=== PATIENT | female | born 1995 | race African-American/Black ===

== ENCOUNTER 2016-09-12 12:47 | Emergency (ER) | payer OTHER ==
[~2016-09-12] VITALS: Ht 170.2 cm; Wt 98.0 kg
[~2016-09-12 12:47] MED LIST: ALBUTEROL2.5 MG/3 M INH; CLARITIN10 M2 ORAL; IBUPROFEN600 MG ORAL; TRAMADOL HCL50 MG ORAL
[2016-09-12 12:58] VITALS: BP 127/80
[2016-09-12] MEDS ORDERED: Albuterol ud Inhalation HHN ONE (13:15)
[2016-09-12] MEDS ORDERED: PredniSONE 20mg tab ORAL ONE (13:15)
[2016-09-12] MEDS ORDERED: ACETAMINOPHEN-1 EAC1 ORAL (14:16)
[2016-09-12] MEDS ORDERED: PREDNISONE20 MG ORAL (14:16)
[2016-09-12] MEDS ORDERED: VENTOLIN HFA18 GM INH (14:16)
--- NOTE | 2016-09-12 14:28 | Emergency Room Report ---
History of Present Illness General Chief Complaint: Asthma Source: Patient Present Illness HPI 21YOF known asthmatic presents with productive cough, URI symptoms, for 3 days. Using home nebulizer with improvement. Doesnt have pump, no asthma attack " in years." Denies chest pain, SOB, fever,chills, sick contacts. Allergies: Coded Allergies: PENICILLINS (Unverified Allergy, Unknown, 09/12/16) Uncoded Allergies: PENICILLIN (Allergy, Unknown, 05/22/16) Patient History Past Medical History: asthma Past Surgical History: none Social History: Denies: alcohol use, drug use, smoking Now: No Reviewed Nursing Documentation: PMH: Agreed, PSxH: Agreed Nursing Documentation-PMH Hx Cardiac Problems: No Hx Hypertension: No Hx Pacemaker: No Hx Asthma: Yes Hx Diabetes: No Hx Cancer: No Hx Gastrointestinal Problems: No Hx Dialysis: No History Of Psychiatric Problem: No Hx Neurological Problems: No Hx Cerebrovascular Accident: No Hx Seizures: No Review of Systems All Other Systems: negative except mentioned in HPI Physical Exam Vital Signs Date Time Temp Pulse Resp B/P Pulse Ox O2 Delivery O2 Flow Rate FiO2 09/12/16 12:58 98.1 82 18 127/80 97 Room Air Sp02 EP Interpretation: reviewed, normal General Appearance: normal inspection, well appearing, no apparent distress, alert, GCS 15, non-toxic Head: normocephalic, atraumatic Eyes: bilateral eye EOMI, bilateral eye PERRL ENT: normal ENT inspection, hearing grossly normal, normal voice Neck: normal inspection, full range of motion, supple, no bony tend Respiratory: normal inspection, lungs clear, normal breath sounds, no respiratory distress, no retraction, no accessory muscle use, no wheezing, speaking full sentences Cardiovascular #1: regular rate, rhythm, no edema Gastrointestinal: normal inspection, normal bowel sounds, non tender, soft, no guarding, no hernia Genitourinary: no CVA tenderness Musculoskeletal: normal inspection, back normal, normal range of motion, Pam' s Sign negative Neurologic: normal inspection, alert, oriented x3, responsive, federal judge III-XII nml as tested, motor strength/tone normal, speech normal Psychiatric: normal inspection, judgement/insight normal, mood/affect normal Skin: normal inspection, normal color, no rash Lymphatic: normal inspection Medical Decision Making Diagnostic Impression: Primary Impression: Bronchitis Additional Impression: URI (upper respiratory infection) Qualified Codes: J06.9 - Acute upper respiratory infection, unspecified; B97.89 - Other viral agents as the cause of diseases classified elsewhere ER Course 21YOF with URI/bronchitis Mild wheeze initially, now lungs CTAB No fever/chills, rhonchi c/w PNA Unlikely PNA Rx albuterol, T#3, albuterol for machine PMD followup DC home Last Vital Signs Date Time Temp Pulse Resp B/P Pulse Ox O2 Delivery O2 Flow Rate FiO2 09/12/16 13:35 70 18 100 Room Air 09/12/16 12:58 98.1 127/80 Status: improved Disposition: HOME, SELF-CARE Condition: Improved Scripts Prednisone* (PREDNISONE*) 20 Mg Tablet 40 MG ORAL DAILY for 3 Days, #3 TAB Prov: LASHAWN VANESSA M.D. 09/12/16 Albuterol Sulfate (VENTOLIN HFA) 18 Gm Hfa.aer.ad 1 PUFF INH EVERY 6 HOURS for For Cough, #18 GM 0 Refills Prov: LASHAWN VANESSA M.D. 09/12/16 Acetaminophen With Codeine (T#3) (TYLENOL #3 TAB*) Y Tab 1 TAB ORAL QHS Y for For Cough for 7 Days, #14 TAB Prov: LASHAWN VANESSA M.D. 09/12/16 Patient Instructions: Acute Bronchitis, [id number] Additional Instructions: - Take Albuterol inhaler/machine during the day for cough - At night, take Tylenol #3 to help you sleep - Take prednisone next 3 days LASHAWN VANESSA M.D. Sep 12, 2016 14:28
[2016-09-12 14:30] VITALS: BP 127/80
== END 2016-09-12 14:30 | disposition home or self-care (01) ==
LOC: EMR 13:20
DX: J40 Bronchitis, not specified as acute or chronic (principal); J06.9 Acute upper respiratory infection, unspecified; B97.89 Other viral agents as the cause of diseases classified elsewhere; Z88.0 Allergy status to penicillin; J45.909 Unspecified asthma, uncomplicated
CPT/HCPCS: 94640; 94664; 99284

== ENCOUNTER 2016-09-26 08:01 | Emergency (ER) | payer MEDICAID, OTHER ==
[~2016-09-26] VITALS: Ht 175.3 cm; Wt 90.7 kg
[~2016-09-26 08:01] MED LIST changes: +ACETAMINOPHEN-1 EAC1 ORAL; +PREDNISONE20 MG ORAL; +VENTOLIN HFA18 GM INH
[2016-09-26 08:24] VITALS: BP 138/92
[2016-09-26] MEDS ORDERED: Ipratropium 0.02% Inh Soln 2.5ml UD HHN ONE (08:30)
[2016-09-26] MEDS ORDERED: Acetaminophen 500mg (ES) tab ORAL ONE (08:30)
[2016-09-26] MEDS ORDERED: Albuterol ud Inhalation HHN ONE (08:30)
[2016-09-26] MEDS ORDERED: PredniSONE 20mg tab ORAL ONE (08:30)
--- NOTE | 2016-09-26 08:31 | Emergency Room Report ---
History of Present Illness General Chief Complaint: Upper Respiratory Illness Source: Patient Present Illness HPI Patient presents with several days of dyspnea and wheezing. She's also had a productive cough with some green phlegm. She has some chest pain at night states it's 9/10 associated with coughing. She has a nebulizer at home which is been using. She finished taking prednisone 4 days ago. Is not her worst attack. She doesn't believe she's had fevers or chills. Her last period was 4 months ago and she is not certain whether she is or not. She denies any dysuria. Is no vomiting or diarrhea. No rashes. Allergies: Coded Allergies: PENICILLINS (Unverified Allergy, Unknown, 09/12/16) Uncoded Allergies: PENICILLIN (Allergy, Unknown, 05/22/16) Patient History Past Medical History: see triage record, asthma Social History: Denies: smoking Social History Narrative at home Last Menstrual Period: irreg Reviewed Nursing Documentation: PMH: Agreed, PSxH: Agreed Nursing Documentation-PMH Past Medical History: No History, Except For Hx Cardiac Problems: No Hx Hypertension: No Hx Pacemaker: No Hx Asthma: Yes Hx Diabetes: No Hx Cancer: No Hx Gastrointestinal Problems: No Hx Dialysis: No Hx Neurological Problems: No Hx Cerebrovascular Accident: No Hx Seizures: No Review of Systems All Other Systems: negative except mentioned in HPI Physical Exam Vital Signs Date Time Temp Pulse Resp B/P Pulse Ox O2 Delivery O2 Flow Rate FiO2 09/26/16 08:14 97.7 85 20 138/92 98 Room Air Sp02 EP Interpretation: reviewed, normal General Appearance: well appearing, no apparent distress, GCS 15 Head: normocephalic Eyes: bilateral eye PERRL, bilateral eye normal inspection ENT: moist mucus membranes Neck: supple Respiratory: wheezing, expiration, inspiration, other - some CWT recreates CP Cardiovascular #1: regular rate, rhythm Cardiovascular #2: 2+ radial (R) Gastrointestinal: normal inspection, normal bowel sounds, non tender, no mass, non-distended Musculoskeletal: back normal, gait/station normal, normal range of motion Neurologic: alert, oriented x3, grossly normal Psychiatric: mood/affect normal Skin: normal inspection, warm/dry Medical Decision Making Diagnostic Impression: Primary Impression: Asthmatic bronchitis Qualified Codes: J45.41 - Moderate persistent asthma with (acute) exacerbation Additional Impressions: Chest pain Qualified Codes: R07.1 - Chest pain on breathing Irregular menses ER Course Patient presents with asthma and productive cough some chest pain. Examination and history against pneumothorax and pneumonia. Patient has asthma and needs breathing treatments. Also be treated with Tylenol here. We'll be checking a urine to exclude . She'll be given prednisone here. As there's purulent sputum consideration for antibiotics is undertaken. After initial treatment, concern over possible pneumonia. CXR ordered. Improved but still with pain. Treated. negative. Antibiotics begun. Patient stable for outpatient observation and treatment Laboratory Tests Test 09/26/16 08:20 Urine Color Pale yellow Urine Appearance Clear Urine pH 8 (4.5-8.0) Urine Specific [place] 1.015 (1.005-1.035) Urine Protein Negative (NEGATIVE) Urine Glucose (UA) Negative (NEGATIVE) Urine Ketones Negative (NEGATIVE) Urine Occult Blood Negative (NEGATIVE) Urine Nitrite Negative (NEGATIVE) Urine Bilirubin Negative (NEGATIVE) Urine Urobilinogen Normal MG/DL (0.0-1.0) Urine Leukocyte Esterase Negative (NEGATIVE) Urine HCG, Qualitative Negative Rhythm Strip Diag. Results Rhythm: NSR, no PVC's, no ectopy Chest X-Ray Diagnostic Results EP Interpretation: Yes Findings: no consolidation, no effusion, no pneumothorax, no acute cardiopulmonary disease Number of Views: 2 Last Vital Signs Date Time Temp Pulse Resp B/P Pulse Ox O2 Delivery O2 Flow Rate FiO2 09/26/16 10:29 97.7 79 18 128/74 100 Room Air 09/26/16 08:42 21 Status: improved Disposition: HOME, SELF-CARE Condition: Improved Scripts Levofloxacin* (LEVAQUIN*) 500 Mg Tablet 500 MG ORAL DAILY, #7 TAB Prov: Donn Beltran M.D. 09/26/16 Prednisone* (PREDNISONE*) 10 Mg Tablet 10 MG ORAL DAILY, #22 TAB 0 Refills 4 po QD X 2, 3 po QD X 2, 2 po QD X 2, 1 po QD X 4 Prov: Donn Beltran M.D. 09/26/16 Codeine/Promethazine Hcl* (PROMETHAZINE-CODEINE SYRUP*) 118 Ml Syrup 5 ML ORAL Q6H Y for For Cough, #90 ML 0 Refills Prov: Donn Beltran M.D. 09/26/16 Albuterol Sulfate* (ALBUTEROL SULFATE HHN*) 2.5 Mg/3 Ml Vial.neb 2.5 MG HHN Q4H Y for Shortness of Breath, #50 VIAL 1 Refill Prov: Donn Beltran M.D. 09/26/16 Donn Beltran M.D. September 26, 2016 08:31
[2016-09-26 09:00] VITALS: BP 124/77
[2016-09-26 09:03] LABS: APPEARANCE,URINE CLEAR; KETONES,URINE NEGATIVE (NEGATIVE); LEUKOCYTE ESTERASE ,URINE NEGATIVE (NEGATIVE); NITRITE,URINE NEGATIVE (NEGATIVE); PH,URINE 8 (4.5-8.0); PROTEIN,URINE NEGATIVE (NEGATIVE); UROBILINOGEN,URINE NORMAL MG/DL (0.0-1.0)
[2016-09-26 10:00] VITALS: BP 128/74
[2016-09-26 10:29] VITALS: BP 128/74
[2016-09-26] MEDS ORDERED: ALBUTEROL2.5 MG/3 M HHN (10:32)
[2016-09-26] MEDS ORDERED: LEVAQUIN500 MG ORAL (10:32)
[2016-09-26] MEDS ORDERED: PREDNISONE10 MG ORAL (10:32)
[2016-09-26] MEDS ORDERED: PROMETHAZINE-C118 M1 ORAL (10:32)
--- NOTE | 2016-09-26 11:10 | Diagnostic Imaging Report ---
Indication: CP Technique: 2 views of the chest Comparison: none. Findings: Lungs and pleural spaces are clear. Heart size is normal. There is mild thoracic kyphotic deformity, without evidence of compression fracture Impression: No acute process Thoracic kyphosis
== END 2016-09-26 10:38 | disposition home or self-care (01) ==
LOC: EMR 08:36
DX: J45.909 Unspecified asthma, uncomplicated (principal); R07.9 Chest pain, unspecified; Z88.0 Allergy status to penicillin; M40.294 Other kyphosis, thoracic region
CPT/HCPCS: 71020; 81003; 81025; 94640; 94664; 99284

== ENCOUNTER 2016-12-02 12:06 | Emergency (ER) | payer OTHER, MEDICAID ==
[~2016-12-02] VITALS: Ht 175.3 cm; Wt 90.7 kg
[~2016-12-02 12:06] MED LIST changes: +ALBUTEROL2.5 MG/3 M HHN; +LEVAQUIN500 MG ORAL; +PREDNISONE10 MG ORAL; +PROMETHAZINE-C118 M1 ORAL
[2016-12-02] MEDS ORDERED: Famotidine 20 MG/ 2ML VIAL IVP ONE (12:45)
[2016-12-02 13:22] LABS: APPEARANCE,URINE CLEAR; BASOPHILS % (AUTO) 0.8 % (0.0-2.0); KETONES,URINE NEGATIVE (NEGATIVE); LEUKOCYTE ESTERASE ,URINE 1+ (NEGATIVE); LYMPHOCYTES % (AUTO) 27.2 % (20.0-45.0); MEAN CORPUSCULAR HEMOGLOBIN 33.1 PG (27.0-31.0); MEAN CORPUSCULAR HGB CONC 33.2 G/DL (32.0-36.0); MEAN CORPUSCULAR VOLUME 100 FL (80-99); MEAN PLATELET VOLUME 6.5 FL (6.5-10.1); MONOCYTES % (AUTO) 6.8 % (1.0-10.0); NEUTROPHILS % (AUTO) 62.2 % (45.0-75.0); NITRITE,URINE NEGATIVE (NEGATIVE); PH,URINE 5 (4.5-8.0); PLATELET COUNT 264 K/UL (150-450); PROTEIN,URINE NEGATIVE (NEGATIVE); RED BLOOD COUNT 4.26 M/UL (4.20-5.40); RED CELL DISTRIBUTION WIDTH 10.7 % (11.6-14.8); UROBILINOGEN,URINE NORMAL MG/DL (0.0-1.0); WHITE BLOOD COUNT 6.3 K/UL (4.8-10.8)
[2016-12-02 13:33] LABS: BACTERIA,URINE FEW /HPF; MUCUS,URINE FEW /LPF (NONE/OCC); RBC,URINE 0-2 /HPF (0 - 2); SQUAMOUS EPITHELIAL CELL,UR FEW /LPF (NONE/OCC)
[2016-12-02 13:39] LABS: ALANINE AMINOTRANSFERASE 11 U/L (3-33); ALBUMIN/GLOBULIN RATIO 1.3 (1.0-2.7); ANION GAP 14 (5-15); ASPARTATE AMINO TRANSFERASE 15 U/L (5-40); CALCIUM 9.5 mg/dL (8.6-10.2); CARBON DIOXIDE 21 mEQ/L (20-30); CHLORIDE 106 mEQ/L (98-107); CREATININE 1.1 mg/dL (0.5-0.9); GLOMERULAR FILTRATION RATE > 60 mL/min (>60); HEMOLYSIS 16; LIPASE 21 U/L (< 60); POTASSIUM 3.6 mEQ/L (3.4-4.9); SODIUM 141 mEQ/L (135-145); TOTAL PROTEIN 7.7 g/dL (6.6-8.7)
[2016-12-02 13:42] VITALS: BP 134/85
[2016-12-02] MEDS ORDERED: RANITIDINE HCL150 MG ORAL (14:03)
[2016-12-02] MEDS ORDERED: ZOFRAN ODT4 MG ORAL (14:03)
[2016-12-02] MEDS ORDERED: BENTYL10 MG ORAL (14:03)
[2016-12-02 14:22] VITALS: BP 134/85
--- NOTE | 2016-12-02 14:57 | Emergency Room Report ---
History of Present Illness General Chief Complaint: Abdominal Pain Source: Patient Present Illness HPI 21-year-old female presents to ED for evaluation. States that she was having abdominal pain with vomiting and diarrhea for the last few days. States she has no pain at this time however continues to have vomiting and diarrhea. Denies any fevers or chills. Patient states that she has not had a period in some time is unsure whether she is . Denies any vaginal bleeding or discharge. No other aggravating relieving factors. Denies any other associated symptoms Allergies: Coded Allergies: PENICILLINS (Unverified Allergy, Unknown, 09/12/16) Uncoded Allergies: PEANUTS (Allergy, Unknown, 12/02/16) PENICILLIN (Allergy, Unknown, 05/22/16) Patient History Past Medical History: asthma Past Surgical History: none Pertinent Family History: none Social History: Denies: alcohol use, drug use, smoking Last Menstrual Period: 06/11/16; seen here a month ago - preg neg. Has appoint on 12/20/16 for w/u Now: No Immunizations: UTD Reviewed Nursing Documentation: PMH: Agreed, PSxH: Agreed Nursing Documentation-PMH Hx Cardiac Problems: No Hx Hypertension: No Hx Pacemaker: No Hx Asthma: Yes Hx Diabetes: No Hx Cancer: No Hx Gastrointestinal Problems: No Hx Dialysis: No Hx Neurological Problems: No Hx Cerebrovascular Accident: No Hx Seizures: No Review of Systems All Other Systems: negative except mentioned in HPI Physical Exam Vital Signs Date Time Temp Pulse Resp B/P Pulse Ox O2 Delivery O2 Flow Rate FiO2 12/02/16 12:13 98.4 75 16 124/82 95 Room Air Sp02 EP Interpretation: reviewed, normal General Appearance: no apparent distress, alert, GCS 15, non-toxic Head: normocephalic, atraumatic Eyes: bilateral eye PERRL, bilateral eye normal inspection ENT: hearing grossly normal, normal pharynx, no angioedema, normal voice Neck: full range of motion, supple/symm/no masses Respiratory: chest non-tender, lungs clear, normal breath sounds, speaking full sentences Cardiovascular #1: regular rate, rhythm, no edema Cardiovascular #2: 2+ carotid (R), 2+ carotid (L), 2+ radial (R), 2+ radial (L) , 2+ dorsalis pedis (R), 2+ dorsalis pedis (L) Gastrointestinal: normal bowel sounds, non tender, soft, non-distended, no guarding, no rebound Rectal: deferred Genitourinary: normal inspection, no CVA tenderness Musculoskeletal: back normal, gait/station normal, normal range of motion, non- tender Neurologic: alert, oriented x3, responsive, motor strength/tone normal, sensory intact, speech normal Psychiatric: judgement/insight normal, memory normal, mood/affect normal, no suicidal/homicidal ideation Reflexes: 3+ bicep (R), 3+ bicep (L), 3+ tricep (R), 3+ tricep (L), 3+ knee (R) , 3+ knee (L) Skin: normal color, no rash, warm/dry, well hydrated Lymphatic: no adenopathy Medical Decision Making Diagnostic Impression: Primary Impression: Gastroenteritis ER Course Hospital Course 21-year-old F presents to ED with vomiting, diarrhea differential diagnosis: gastritis, SBO, cholecystits, gastroenteritis Clinical course Patient placed on stretcher. On front desk monitor. After initial history and physical I ordered labs, IV fluids, Zofran and Zantac Labs - no leukocytosis, electrolytes ok, LFTs normal, UA unremarkable, Upreg negative Upon reassessment, patient states symptoms has improved. findings consistent with gastroenteritis I feel this is a highly complex case requiring extensive working including EKG/ Rhythm strip, Xray/CT/US, Blood/urine lab work, repeat exams while in ED, and administration of strong opiates/narcotics for pain control, admission to hospital or close patient follow up. Diagnosis - gastroenteritis Stable and discharged to home with prescriptions for Zantac, zofran, bentyl. Followup with PMD. Return to ED if symptoms recur or worsen Labs Test 12/02/16 12:54 White Blood Count 6.3 K/UL (4.8-10.8) Red Blood Count 4.26 M/UL (4.20-5.40) Hemoglobin 14.1 G/DL (12.0-16.0) Hematocrit 42.4 % (37.0-47.0) Mean Corpuscular Volume 100 FL (80-99) Mean Corpuscular Hemoglobin 33.1 PG (27.0-31.0) Mean Corpuscular Hemoglobin Concent 33.2 G/DL (32.0-36.0) Red Cell Distribution Width 10.7 % (11.6-14.8) Platelet Count 264 K/UL (150-450) Mean Platelet Volume 6.5 FL (6.5-10.1) Neutrophils (%) (Auto) 62.2 % (45.0-75.0) Lymphocytes (%) (Auto) 27.2 % (20.0-45.0) Monocytes (%) (Auto) 6.8 % (1.0-10.0) Eosinophils (%) (Auto) 3.0 % (0.0-3.0) Basophils (%) (Auto) 0.8 % (0.0-2.0) Urine Color Yellow Urine Appearance Clear Urine pH 5 (4.5-8.0) Urine Specific [place] 1.025 (1.005-1.035) Urine Protein Negative (NEGATIVE) Urine Glucose (UA) Negative (NEGATIVE) Urine Ketones Negative (NEGATIVE) Urine Occult Blood Negative (NEGATIVE) Urine Nitrite Negative (NEGATIVE) Urine Bilirubin Negative (NEGATIVE) Urine Urobilinogen Normal MG/DL (0.0-1.0) Urine Leukocyte Esterase 1+ (NEGATIVE) Urine RBC 0-2 /HPF (0 - 2) Urine WBC 2-4 /HPF (0 - 2) Urine Squamous Epithelial Cells Few /LPF (NONE/OCC) Urine Bacteria Few /HPF (NONE) Urine Mucus Few /LPF (NONE/OCC) Urine HCG, Qualitative Negative Sodium Level 141 mEQ/L (135-145) Potassium Level 3.6 mEQ/L (3.4-4.9) Chloride Level 106 mEQ/L (98-107) Carbon Dioxide Level 21 mEQ/L (20-30) Anion Gap 14 (5-15) Blood Urea Nitrogen 15 mg/dL (7-23) Creatinine 1.1 mg/dL (0.5-0.9) Estimat Glomerular Filtration Rate > 60 mL/min (>60) Glucose Level 91 mg/dL (74-106) Calcium Level 9.5 mg/dL (8.6-10.2) Total Bilirubin 0.7 mg/dL (0.0-1.2) Aspartate Amino Transf (AST/SGOT) 15 U/L (5-40) Alanine Aminotransferase (ALT/SGPT) 11 U/L (3-33) Alkaline Phosphatase 59 U/L (35-104) Total Protein 7.7 g/dL (6.6-8.7) Albumin 4.4 g/dL (3.5-5.2) Globulin 3.3 g/dL Albumin/Globulin Ratio 1.3 (1.0-2.7) Lipase 21 U/L (< 60) Human Chorionic Gonadotropin, Quant < 1 mIU/mL Last Vital Signs Date Time Temp Pulse Resp B/P Pulse Ox O2 Delivery O2 Flow Rate FiO2 12/02/16 14:22 98.4 51 21 134/85 100 Room Air Status: improved Disposition: HOME, SELF-CARE Condition: Stable Scripts Ranitidine Hcl* (ZANTAC*) 150 Mg Tablet 150 MG ORAL TWICE A DAY, #30 TAB Prov: LESTER BETTENCOURT M.D. 12/02/16 Dicyclomine Hcl* (BENTYL*) 10 Mg Capsule 10 MG ORAL FOUR TIMES A DAY, #20 CAP Prov: LESTER BETTENCOURT M.D. 12/02/16 Ondansetron Odt* (ZOFRAN ODT*) 4 Mg Tab.rapdis 4 MG ORAL Q6H Y for Nausea & Vomiting, #30 TAB 0 Refills Prov: LESTER BETTENCOURT M.D. 12/02/16 Patient Instructions: Viral Gastroenteritis, Adult, [id number] LESTER BETTENCOURT M.D. Dec 02, 2016 14:56
== END 2016-12-02 14:22 | disposition home or self-care (01) ==
LOC: EMR 12:35
DX: K52.9 Noninfective gastroenteritis and colitis, unspecified (principal); J45.909 Unspecified asthma, uncomplicated; Z88.0 Allergy status to penicillin; Z91.010 Allergy to peanuts
CPT/HCPCS: 36415; 80053; 81003; 81025; 83690; 84702; 85025; 96374; 96375; 99284; J2405; S0028

== ENCOUNTER 2017-02-17 16:25 | Emergency (ER) | payer OTHER, MEDICAID ==
[~2017-02-17] VITALS: Ht 175.3 cm; Wt 88.0 kg
[~2017-02-17 16:25] MED LIST changes: +BENTYL10 MG ORAL; +RANITIDINE HCL150 MG ORAL; +ZOFRAN ODT4 MG ORAL
[2017-02-17 16:39] VITALS: BP 121/67
--- NOTE | 2017-02-17 16:42 | Emergency Room Report ---
History of Present Illness General Chief Complaint: Upper Respiratory Illness Source: Patient Present Illness HPI Patient is a 21-year-old female with a past medical history of asthma who presents today with complaints of cough that began 4 days ago. She states she has been coughing up brownish sputum. She also states she's had an associated sore throat which is improving. She has been using her albuterol nebulizer at home with some improvement. She denies any fever, chills or associated symptoms. Allergies: Coded Allergies: PENICILLINS (Unverified Allergy, Unknown, 09/12/16) Uncoded Allergies: PEANUTS (Allergy, Unknown, 12/02/16) PENICILLIN (Allergy, Unknown, 05/22/16) Patient History Last Menstrual Period: 01/15/17 Now: No Reviewed Nursing Documentation: PMH: Agreed, PSxH: Agreed Nursing Documentation-PMH Hx Cardiac Problems: No Hx Hypertension: No Hx Pacemaker: No Hx Asthma: Yes - Tonsilitis, Strep Throat Hx Diabetes: No Hx Cancer: No Hx Gastrointestinal Problems: No Hx Dialysis: No Hx Neurological Problems: No Hx Cerebrovascular Accident: No Hx Seizures: No Review of Systems Respiratory: Reports: cough All Other Systems: negative except mentioned in HPI Physical Exam Vital Signs Date Time Temp Pulse Resp B/P (MAP) Pulse Ox O2 Delivery O2 Flow Rate FiO2 02/17/17 16:32 Room Air Sp02 EP Interpretation: reviewed, normal General Appearance: no apparent distress, alert, GCS 15, non-toxic Head: normocephalic, atraumatic Eyes: bilateral eye normal inspection, bilateral eye PERRL ENT: hearing grossly normal, normal pharynx, no angioedema, normal voice Neck: full range of motion, supple/symm/no masses Respiratory: chest non-tender, speaking full sentences, other - diminished lung sounds in the right lower lobe Cardiovascular #1: regular rate, rhythm, no edema Cardiovascular #2: 2+ carotid (R), 2+ carotid (L), 2+ radial (R), 2+ radial (L) , 2+ dorsalis pedis (R), 2+ dorsalis pedis (L) Gastrointestinal: normal bowel sounds, non tender, soft, non-distended, no guarding, no rebound Rectal: deferred Genitourinary: normal inspection, no CVA tenderness Musculoskeletal: back normal, gait/station normal, normal range of motion, non- tender, calf tenderness Neurologic: alert, oriented x3, responsive, motor strength/tone normal, sensory intact, speech normal Psychiatric: judgement/insight normal, memory normal, mood/affect normal, no suicidal/homicidal ideation Reflexes: 3+ bicep (R), 3+ bicep (L), 3+ tricep (R), 3+ tricep (L), 3+ knee (R) , 3+ knee (L) Skin: normal color, no rash, warm/dry, well hydrated Lymphatic: no adenopathy Medical Decision Making PA Attestation SUPERVISING PHYSICIAN IS Dr. VANESSA ER Course Chest x-ray is within normal limits. Patient given breathing treatment and on her evaluation at 1818, patient states she is feeling much better. Breath sounds are normal bilaterally. The patient is discharged home a short course of prednisone and Tessalon Perles. The grandmother treatment this time as patient has a viral URI. Instructed to follow up with PCP as needed for reevaluation. Patient understands and is agreeable to plan. Chest X-Ray Diagnostic Results Chest X-Ray Diagnostic Results : Chest X-Ray Ordered: Yes # of Views/Limited/Complete: 1 View Indication: Shortness of Breath EP Interpretation: Yes Interpretation: no consolidation, no effusion, no pneumothorax Impression: No acute disease Electronically Signed by: JOSE Reevaluation Time: 18:18 Last Vital Signs Date Time Temp Pulse Resp B/P (MAP) Pulse Ox O2 Delivery O2 Flow Rate FiO2 02/17/17 16:32 Room Air Status: improved Reevaluation Impression Lungs are clear to auscultation bilaterally. Chest normal respiratory effort. No coughing noted Disposition: HOME, SELF-CARE Condition: Stable Scripts Benzonatate* (TESSALON PERLE*) 100 Mg Capsule 100 MG ORAL THREE TIMES A DAY, #20 PERLE Prov: Gisela Williamson P.A. 02/17/17 Prednisone* (PREDNISONE*) 20 Mg Tablet 40 MG ORAL DAILY for 4 Days, #4 TAB Prov: Gisela Williamson P.A. 02/17/17 Gisela Williamson P.A. Feb 17, 2017 16:42
[2017-02-17] MEDS ORDERED: Albuterol ud Inhalation HHN ONE (16:45)
[2017-02-17 18:26] VITALS: BP 119/75
[2017-02-17] MEDS ORDERED: TESSALON PERLE100 MG ORAL (18:32)
[2017-02-17] MEDS ORDERED: PREDNISONE20 MG ORAL (18:32)
[2017-02-17 18:55] VITALS: BP 119/75
--- NOTE | 2017-02-18 12:33 | Diagnostic Imaging Report ---
Indication: COUGH Technique: One view of the chest Comparison: 09/26/2016 Findings: Lungs and pleural spaces are clear. Heart size is normal. No significant interim change Impression: No acute process
== END 2017-02-17 18:55 | disposition home or self-care (01) ==
LOC: EMR 18:22
DX: R05 Cough (principal); J06.9 Acute upper respiratory infection, unspecified; Z91.010 Allergy to peanuts; Z88.0 Allergy status to penicillin; R07.0 Pain in throat
CPT/HCPCS: 71010; 99284